=== PATIENT | male | born 1930 ===

== ENCOUNTER 2020-12-28 11:22 | Emergency (ER) | payer MEDICARE ==
[~2020-12-28] VITALS: Ht 167.6 cm; Wt 98.4 kg
[2020-12-28] MEDS ORDERED: GABA100 PO (11:53)
[2020-12-28] MEDS ORDERED: Amaryl2 MG PO (11:53)
[2020-12-28] MEDS ORDERED: Coreg6.25 MG PO (11:53)
[2020-12-28] MEDS ORDERED: ALLO100 PO (11:53)
[2020-12-28] MEDS ORDERED: TAMS.4ER PO (11:54)
[2020-12-28] MEDS ORDERED: TORSE20 PO (11:54)
[2020-12-28] MEDS ORDERED: SPIR25 PO (11:54)
[2020-12-28] MEDS ORDERED: XARELTO20 MG PO (11:54)
[2020-12-28] MEDS ORDERED: LORA.5 PO (11:54)
[2020-12-28 12:05] LABS: BASOPHILS ABSOLUTE AUTO 0.04 K/mm3 (0.00-0.23); BASOPHILS PERCENT AUTO 0 % (0-2); EOSINOPHILS ABSOLUTE AUTO 0.26 K/mm3 (0.00-0.68); EOSINOPHILS PERCENT AUTO 3 % (0-6); Hematocrit 34.9 % (37.0-53.0); Hemoglobin 11.4 g/dL (13.5-17.5); IMMATURE GRAN ABSOLUTE AUTO 0.03 K/mm3 (0.00-0.10); IMMATURE GRAN PERCENT AUTO 0 % (0-1); LYMPHOCYTES ABSOLUTE AUTO 1.78 K/mm3 (0.84-5.20); LYMPHOCYTES PERCENT AUTO 20 % (21-46); MONOCYTES ABSOLUTE AUTO 1.09 K/mm3 (0.16-1.47); MONOCYTES PERCENT AUTO 12 % (4-13); Mean Corpuscular HGB Conc 32.7 g/dL (31.5-36.5); Mean Corpuscular Volume 89 fL (80-100); Mean Platelet Volume 10.7 fL (9.1-12.4); NEUTROPHILS ABSOLUTE AUTO 5.87 K/mm3 (1.96-9.15); NEUTROPHILS PERCENT AUTO 65 % (41-73); Platelet Count 229 K/mm3 (150-400); RDW Coefficient Variation 15.9 % (11.7-14.2); RDW Standard Deviation 51.8 fL (35.1-46.3); Red Blood Cell Count 3.93 M/mm3 (4.30-5.90); White Blood Cell Count 9.07 K/mm3 (4.00-11.30)
[2020-12-28 12:18] LABS: Albumin/Globulin Ratio 0.7 (0.8-1.8); Bilirubin, Total 0.4 mg/dL (0.1-1.0); Bun/Creatinine Ratio 29.8 (12.0-20.0); Calcium, Blood 8.9 mg/dL (8.5-10.1); Creatinine, Blood 1.61 mg/dL (0.60-1.20); Globulin, Blood 4.5 g/dL (2.2-4.0); Potassium, Blood 4.1 mmol/L (3.5-5.5); Total Protein, Blood 7.5 g/dL (6.4-8.2); Troponin I 0.152 ng/mL (0.000-0.040)
== END 2020-12-28 13:51 | disposition left against medical advice (07) ==
LOC: ER 11:22
PROVIDERS: Emergency Medicine
DX: I24.9 Acute ischemic heart disease, unspecified (principal); R79.89 Other specified abnormal findings of blood chemistry; I11.0 Hypertensive heart disease with heart failure; I50.9 Heart failure, unspecified; E11.9 Type 2 diabetes mellitus without complications; Z79.01 Long term (current) use of anticoagulants; Z79.899 Other long term (current) drug therapy; Z95.0 Presence of cardiac pacemaker
CPT/HCPCS: 36415; 71111; 80053; 84484; 85025; 93005; 93010; 99285-25